=== PATIENT | male | born 1975 | race Caucasian/White ===

== ENCOUNTER 2023-03-08 07:07 | Emergency (ER) | payer OTHER ==
[~2023-03-08] VITALS: Ht 193 cm; Wt 72.7 kg
[~2023-03-08 07:07] MED LIST: NOCURR
[2023-03-08 07:15] VITALS: TEMP 97.7
[2023-03-08] MEDS ORDERED: DULA0.75 SQ (07:23)
[2023-03-08] MEDS ORDERED: EMPA10TA3 PO (07:23)
[2023-03-08] MEDS ORDERED: METF-81 PO (07:23)
[2023-03-08 07:36] LABS: COVID AG,FIA SOURCE NASAL SWAB
[2023-03-08 07:58] LABS: SARS-COV2 (COVID) ANTIGEN,FIA Negative (Negative)
[2023-03-08 07:59] LABS: INFLUENZA TYPE A NEGATIVE FOR TYPE A (NEGATIVE); INFLUENZA TYPE B NEGATIVE FOR TYPE B (NEGATIVE)
[2023-03-08] MEDS ORDERED: SODIUM CHLORIDE 0.9% 1,000 ML IV ONE ×2 (08:00→10:30)
[2023-03-08] MEDS ORDERED: ONDANSETRON HCL 4 MG/2 ML VIAL IVP ONE (08:00)
[2023-03-08 08:07] LABS: BASOPHILS % (AUTO) 0.8 % (0.0-2.0); EOSINOPHILS % (AUTO) 1.4 % (1.0-6.0); HEMATOCRIT 42.9 % (41-53); HEMOGLOBIN 14.7 g/dL (13.5-17.5); LYMPHOCYTES # (AUTO) 3.2 K/uL (1.0-4.8); LYMPHOCYTES % (AUTO) 24.8 % (22.0-44.0); MEAN CORPUSCULAR HEMOGLOBIN 32.6 pg (26.0-34.0); MEAN CORPUSCULAR HGB CONC 34.3 G/dL (31.0-37.0); MEAN CORPUSCULAR VOLUME 95 fL (80-100); MONOCYTES # (AUTO) 0.9 K/uL (0.1-1.0); MONOCYTES % (AUTO) 7.1 % (2.0-9.0); NEUTROPHILS # (AUTO) 8.4 K/uL (1.8-7.7); NEUTROPHILS % (AUTO) 65.9 % (40.0-70.0); PLATELET COUNT (AUTO) 300 K/uL (150-450); RED BLOOD CELL COUNT(AUTO) 4.52 MIL/uL (4.50-5.90); WHITE BLOOD COUNT (AUTO) 12.7 K/uL (4.5-11.0)
[2023-03-08 08:15] LABS: ANION GAP 10 mmol/L (8-16); CALCIUM, TOTAL 9.7 mg/dL (8.8-10.5); CARBON DIOXIDE 26 mmol/L (22-29); CHLORIDE 97 mmol/L (98-107); CREATININE 0.78 mg/dL (0.60-1.30); GLOMERULAR FILTR. RATE CALC > 60 mL/min (>60); GLUCOSE,RANDOM 164 mg/dL (70-110); POTASSIUM 3.8 mmol/L (3.5-5.1); SODIUM SERUM 132 mmol/L (136-145); UREA NITROGEN, BLOOD 15 mg/dL (7-18)
[2023-03-08] MEDS ORDERED: CEPHALEXIN MONOHYDRATE 500 MG CAPSULE PO ONE (09:15)
[2023-03-08] MEDS ORDERED: SULFAMETHOX/TRIMETH DS 800-160 MG/TABLET PO ONE (09:15)
[2023-03-08] MEDS ORDERED: CEPH-558 PO (10:18)
[2023-03-08] MEDS ORDERED: SULF-261 PO (10:19)
[2023-03-08] MEDS ORDERED: OxyCODONE HCL/ACETAMINOPHEN 5-325 MG TABLET PO ONE (10:30)
[2023-03-08] MEDS ORDERED: LORazepam 1 MG TABLET PO ONE (10:30)
[2023-03-08 11:08] VITALS: BP 135/70; PULSE 90; RESP 15
== END 2023-03-08 11:30 | disposition home or self-care (01) ==
LOC: EMS 07:10
DX: R21 Rash and other nonspecific skin eruption (principal); F32.A Depression, unspecified; Z88.0 Allergy status to penicillin; Z20.822 Contact with and (suspected) exposure to COVID-19
CPT/HCPCS: 99283; 96374; 96361; 87426; 80048; 85025; 87804; 36415; J2405; J7030

== ENCOUNTER 2023-05-18 23:01 | Emergency (ER) | payer OTHER ==
[~2023-05-18] VITALS: Ht 193 cm; Wt 77.3 kg
[~2023-05-18 23:01] MED LIST changes: +CEPH-558 PO; +DULA0.75 SQ; +EMPA10TA3 PO; +METF-81 PO; +SULF-261 PO
[2023-05-18 23:22] VITALS: BP 122/71; PULSE 101; RESP 18; TEMP 97.8
[2023-05-19] MEDS ORDERED: IBUP-1492 PO (01:31)
[2023-05-19] MEDS ORDERED: METH-659 PO (01:31)
[2023-05-19] MEDS: KETOROLAC TROMETHAMINE 60 MG/2 ML VIAL IM ONE (01:31)
[2023-05-19] MEDS: METHOCARBAMOL 500 MG TABLET PO ONE (01:32)
[2023-05-19] MEDS: LIDOCAINE 5% TRANSDERMAL PATCH TD ONE (01:32)
== END 2023-05-19 02:00 | disposition home or self-care (01) ==
LOC: EMS 23:01
DX: M46.1 Sacroiliitis, not elsewhere classified (principal); F32.A Depression, unspecified; E11.9 Type 2 diabetes mellitus without complications; F17.210 Nicotine dependence, cigarettes, uncomplicated; F12.90 Cannabis use, unspecified, uncomplicated; Z88.0 Allergy status to penicillin
CPT/HCPCS: 99283; 96372; J1885